=== PATIENT | female | born 1980 | race Two or more races ===

== ENCOUNTER 2024-07-25 13:45 | Emergency (ER) | payer MEDICAID, OTHER ==
[~2024-07-25] VITALS: Ht 165.1 cm; Wt 100.0 kg
--- NOTE | 2024-07-25 16:37 | ED.PDOC ---
HPI Comments Pt arrived in ER due to laceration to left achilles after being cut by glass while recyling. Pt VSS. bleeding controlled. Pt in 12/04 pain. Chief Complaint: Laceration Time Seen by MD: 15:19 Reviewed Notes: Nurses Notes, Medications, Allergies Allergies: Coded Allergies: NO KNOWN ALLERGIES (Unverified , 07/25/24) Information Source: Patient Mode of Arrival: Wheelchair Complexity: Intermediate Laceration Length (cm): 2 Past Medical History PAST MEDICAL HISTORY: Denies Surgical History: Denies all surgeries TRANSITION RN History: No Pertinent TRANSITION RN History Family History Family History: Reviewed,noncontributory to illness Social History Smoker: Non-Smoker Alcohol: Denies ETOH Use Drugs: Denies Drug Use Constitutional: denies: chills, diaphoresis, fatigue, fever, malaise, sweats, weakness, others EENTM: denies: blurred vision, double vision, ear bleeding, ear discharge, ear drainage, ear pain, ear ringing, eye pain, eye redness, hearing loss, mouth cheryl n, mouth swelling, nasal discharge, nose bleeding, nose congestion, nose pain, photophobia, tearing, throat pain, throat swelling, voice changes, others Respiratory: denies: cough, hemoptysis, orthopnea, SOB at rest, shortness of breath, SOB with excertion, stridor, wheezing, others Cardiovascular: denies: chest pain, dizzy spells, diaphoresis, Dyspnea on exertion, edema, irregular heart beat, left arm pain, lightheadedness, palpitations, PND, syncope, others Gastrointestinal: denies: abdomen distended, abdominal pain, blood streaked bowels, constipated, diarrhea, dysphagia, difficulty swallowing, hematemesis, melena, nausea, poor appetite, poor fluid intake, rectal bleeding, rectal pain, vomiting, others Genitourinary: denies: abnormal vagina bleeding, burning, dyspareunia, dysuria, flank pain, frequency, hematuria, incontinence, pain, , vagina discharge, urgency, others Neurological: denies: dizziness, fainting, headache, left sided numbness, left sided weakness, numbness, paresthesia, pre-existing deficit, right sided numbness, right sided weakness, seizure, speech problems, tingling, tremors, weakness, others Musculoskeletal: denies: back pain, gout, joint pain, joint swelling, muscle pain, muscle stiffness, neck pain, others Integumetry: reports: laceration (right lower leg); denies: bruises, change in color, change in hair/nails, dryness, lesions, lumps, rash, wounds, others Allergic/Immunocompromised: denies: Difficulty Healing, Frequent Infections, Hives, Itching, others Hematologic/Lymphatic: denies: anemia, blood clots, easy bleeding, easy bruising, swollen glands, others Endocrine: denies: excessive hunger, excessive sweating, excessive thirst, excessive urination, flushing, intolerance to cold, intolerance to heat, unexplained weight gain, unexplained weight loss, others Psychiatric: denies: anxiety, bipolar disorder, depression, hopeless, panic disorder, schizophrenia, sleepless, suicidal, others Physical Exam General Appearance: No Apparent Distress, Normal HEENT: Pharynx Normal Neck: Full Range of Motion, Non-Tender Respiratory: Lungs Clear, No Accessory Muscle Use, No Respiratory Distress, Normal Breath Sounds Cardiovascular: No Murmur, Normal Peripheral Pulses, Regular Rate/Rhythm Breast Exam: Deferred Gastrointestinal: Non Tender, Soft Genitalia: Deferred Pelvic: Deferred Rectal: Deferred Extremities: Normal capillary refill, Normal inspection, Normal range of motion, Non-tender, No pedal edema Musculoskeletal : Apperance: Normal Neurologic: Alert, No Motor Deficits, Normal Affect, Normal Mood, No Sensory Deficits Cerebellar Function: Normal Reflexes: Normal Skin: Dry, Lacerations (2. 5 cm full thickness lac to right distal posterior lateral leg. bleeding controlled no obvious fb, strength sensory and motion intact), Normal Color, Warm Lymphatic: No Adenopathy Was a procedure done? Was a procedure done?: Yes Sedation Sedation?: No Informed consent obtained: Yes Laceration Repair : Location Right lower leg distal posterior lateral full-thickness laceration Length 2.5 cm Anesthetic: Lidocaine, Without epi Laceration Repair Prep: Saline, by Irrigation Laceration Repair Wound Comple: epidermis/dermis repair Laceration Repair: Number of sutures (7), Simple Informed consent obtained: Yes Risks, benefits, and alternati: Yes Notes Patient tolerated well minimal blood loss Differential diagnosis Suture Removal: Cellulitis Generic Laceration: Retained Foriegn Body, Neurovascular Injury, Tendon Injury X-Ray, Labs, Meds, VS Vital Signs Date Time Temp Pulse Resp B/P (MAP) Pulse Ox O2 Delivery O2 Flow Rate FiO2 5/31/25 17:05 78 18 97 Room Air 07/25/24 17:05 98.0 78 18 115/70 (85) 97 98.0 07/25/24 13:45 98.0 99 20 126/68 (87) 93 98.0 X-Ray, Labs, Meds, VS Comment See procedure note. Patient to follow up in 2 days for wound re-evaluation with PCP urgent care or back here in the ER suture removal in 5-7 days. He has not ER return precautions patient indicates understanding and agrees with discharge plan of care. Time of 1ST Reevaluation: 16:30 Reevaluation 1ST: Improved Patient Education/Counseling: Diagnosis, Treatment, Prognosis, Need For Follow Up Family Education/Counseling: Diagnosis, Treatment, Prognosis, Need For Follow Up, No Family Present Departure 1 Departure Time of Disposition: 16:36 Impression: Primary Impression: Laceration of lower leg, right Qualified Codes: S81.811A - Laceration without foreign body, right lower leg, initial encounter Disposition: 01 HOME / SELF CARE / HOMELESS Condition: Stable Discharged With: Relative, Spouse Critical Care Note Critical Care Time?: No Stability Stability form required: CAMILO Vidal July 25, 2024 16:36
[2024-07-25 17:05] VITALS: BP 115/70; PULSE 78; RESP 18; TEMP 98; O2SAT 97
== END 2024-07-25 17:11 | disposition home or self-care (01) ==
LOC: ER 13:48
DX: S81.811A Laceration without foreign body, right lower leg, initial encounter (principal); W25.XXXA Contact with sharp glass, initial encounter; Y93.89 Activity, other specified; Y92.89 Other specified places as the place of occurrence of the external cause; Y99.8 Other external cause status
CPT/HCPCS: 12001